=== PATIENT | male | born 1980 | race Caucasian/White ===

== ENCOUNTER 2023-12-23 23:54 | Inpatient (IN) | payer OTHER ==
[~2023-12-23] VITALS: Ht 167.6 cm; Wt 68.2 kg
[2023-12-24 00:35] LABS: BASOPHILS % (AUTO) 0.3 % (0.0-2.0); EOSINOPHILS % (AUTO) 1.6 % (1.0-6.0); HEMATOCRIT 42.1 % (41-53); HEMOGLOBIN 13.6 g/dL (13.5-17.5); LYMPHOCYTES # (AUTO) 3.4 K/uL (1.0-4.8); LYMPHOCYTES % (AUTO) 38.4 % (22.0-44.0); MEAN CORPUSCULAR HEMOGLOBIN 31.1 pg (26.0-34.0); MEAN CORPUSCULAR HGB CONC 32.3 G/dL (31.0-37.0); MEAN CORPUSCULAR VOLUME 96 fL (80-100); MONOCYTES # (AUTO) 0.7 K/uL (0.1-1.0); NEUTROPHILS # (AUTO) 4.6 K/uL (1.8-7.7); NEUTROPHILS % (AUTO) 51.7 % (40.0-70.0); PLATELET COUNT (AUTO) 285 K/uL (150-450); RED BLOOD CELL COUNT(AUTO) 4.37 MIL/uL (4.50-5.90); WHITE BLOOD COUNT (AUTO) 8.8 K/uL (4.5-11.0)
[2023-12-24 00:48] LABS: ANION GAP 6 mmol/L (8-16); CALCIUM, TOTAL 9.1 mg/dL (8.8-10.5); CARBON DIOXIDE 32 mmol/L (22-29); CHLORIDE 104 mmol/L (98-107); CREATININE 0.92 mg/dL (0.60-1.30); GLOMERULAR FILTR. RATE CALC > 60 mL/min (>60); GLUCOSE,RANDOM 120 mg/dL (70-110); POTASSIUM 4.2 mmol/L (3.5-5.1); SODIUM SERUM 142 mmol/L (136-145); UREA NITROGEN, BLOOD 16 mg/dL (7-18)
[2023-12-24 00:52] LABS: B-TYPE NATRIURETIC PEPTIDE 10 pg/mL (0-100)
[2023-12-24 00:56] LABS: ALANINE AMINOTRANSFERASE 19 U/L (12-78); ALBUMIN 3.9 g/dL (3.4-5.0); ALKALINE PHOSPHATASE 88 U/L (46-116); ASPARTATE AMINOTRANSFERASE 12 U/L (15-37); BILIRUBIN,TOTAL 0.2 mg/dL (0.1-1.0); LIPASE 19 U/L (16-77)
[2023-12-24 00:57] LABS: TROPONIN I-HIGH SENSITIVITY Less Than 4 ng/L (<76)
[2023-12-24] MEDS ORDERED: IOHEXOL 350 MG/ML 100 ML VIAL ONE (00:57)
[2023-12-24] MEDS ORDERED: SODIUM CHLORIDE 0.9% 100 ML ONE (00:57)
[2023-12-24 01:53] LABS: COVID AG,FIA SOURCE NASAL SWAB
[2023-12-24] MEDS: ONDANSETRON HCL 4 MG/2 ML VIAL IVP ONE (01:54)
[2023-12-24] MEDS: FAMOTIDINE 20 MG/2 ML VIAL IVP ONE (01:54)
[2023-12-24] MEDS ORDERED: ONDANSETRON HCL 4 MG/2 ML VIAL IVP PRN (02:00)
[2023-12-24 02:24] LABS: APPEARANCE,URINE CLEAR (CLEAR); BILIRUBIN,URINE NEGATIVE (NEGATIVE); COLOR,URINE YELLOW (YELLOW); GLUCOSE, URINE (UA) NEGATIVE (NEGATIVE); KETONES,URINE TRACE mg/dL (NEGATIVE); LEUKOCYTE ESTERASE ,URINE NEGATIVE (NEGATIVE); NITRATE,URINE NEGATIVE (NEGATIVE); OCCULT BLOOD,URINE NEGATIVE (NEGATIVE); PROTEIN,URINE 30-70 mg/dL (NEGATIVE)
[2023-12-24 02:26] LABS: SARS-COV2 (COVID) ANTIGEN,FIA Negative (Negative)
[2023-12-24 02:29] LABS: INFLUENZA TYPE A NEGATIVE FOR TYPE A (NEGATIVE); INFLUENZA TYPE B NEGATIVE FOR TYPE B (NEGATIVE)
[2023-12-24] MEDS: RINGERS SOLUTION,LACTATED 1,000 ML IV SCH (02:58)
[2023-12-24] MEDS: KETOROLAC TROMETHAMINE 30 MG/ML VIAL IVP ONE (04:39)
[2023-12-24 05:34] VITALS: BP 126/63; PULSE 69; RESP 19; TEMP 98.1; O2SAT 99
[2023-12-24 07:35] VITALS: BP 123/70; PULSE 65; RESP 18; TEMP 97.7; O2SAT 97
[2023-12-24] MEDS: HEPARIN SODIUM,PORCINE 5,000 UNITS/ML VIAL SQ SCH (09:25)
[2023-12-24 20:00] VITALS: BP 125/79; PULSE 70; RESP 18; TEMP 98.5; O2SAT 100
[2023-12-24] MEDS: ACETAMINOPHEN 325 MG TABLET PO PRN (21:07)
[2023-12-25] MEDS ORDERED: OXCA300T70 PO (00:17)
[2023-12-25] MEDS ORDERED: LEVA15HF3 PUFF (00:19)
[2023-12-25] MEDS ORDERED: LEVO88TA4 PO (00:20)
[2023-12-25] MEDS ORDERED: SENN-376 PO (00:22)
[2023-12-25] MEDS ORDERED: OMEP20 PO (00:23)
[2023-12-25] MEDS ORDERED: ONDA-104 PO (00:24)
[2023-12-25] MEDS ORDERED: LINA290C PO (00:27)
[2023-12-25] MEDS ORDERED: MAGN-169 PO (00:27)
[2023-12-25] MEDS ORDERED: NALO4SPR NASAL (00:27)
[2023-12-25] MEDS ORDERED: VENL-68 PO (00:27)
[2023-12-25] MEDS ORDERED: DOCU-385 PO (00:29)
[2023-12-25] MEDS ORDERED: AMOX-457 PO (00:29)
[2023-12-25] MEDS ORDERED: ARIP2TAB27 PO (00:29)
[2023-12-25] MEDS ORDERED: CLOZ25TA52 PO (00:29)
[2023-12-25] MEDS ORDERED: LIDO1ADH83 TP (00:33)
[2023-12-25] MEDS ORDERED: SUCR1TAB2 PO (00:33)
[2023-12-25] MEDS ORDERED: BUPR1FIL7 SL (00:33)
[2023-12-25] MEDS ORDERED: BUPR1FIL5 SL (00:33)
[2023-12-25] MEDS ORDERED: HYDR30CR39 TP (00:42)
[2023-12-25] MEDS ORDERED: DORZ1DRO7 OU (00:42)
[2023-12-25] MEDS ORDERED: LATA2.5D14 OU (00:42)
[2023-12-25] MEDS ORDERED: BRIM5DRO9 OU (00:42)
[2023-12-25 04:00] VITALS: BP 110/62; PULSE 62; RESP 20; TEMP 97.7; O2SAT 98
[2023-12-25 08:00] VITALS: BP 130/77; PULSE 71; RESP 18; TEMP 98.5; O2SAT 100
[2023-12-25 11:34] LABS: BASOPHILS % (AUTO) 0.2 % (0.0-2.0); EOSINOPHILS % (AUTO) 2.1 % (1.0-6.0); HEMATOCRIT 37.5 % (41-53); HEMOGLOBIN 12.4 g/dL (13.5-17.5); LYMPHOCYTES # (AUTO) 1.3 K/uL (1.0-4.8); LYMPHOCYTES % (AUTO) 14.7 % (22.0-44.0); MEAN CORPUSCULAR HEMOGLOBIN 31.6 pg (26.0-34.0); MEAN CORPUSCULAR VOLUME 96 fL (80-100); MONOCYTES % (AUTO) 10.9 % (2.0-9.0); NEUTROPHILS # (AUTO) 6.3 K/uL (1.8-7.7); NEUTROPHILS % (AUTO) 72.1 % (40.0-70.0); PLATELET COUNT (AUTO) 257 K/uL (150-450); RED BLOOD CELL COUNT(AUTO) 3.92 MIL/uL (4.50-5.90); RED CELL DISTRIBUTION WIDTH 12.7 % (11.5-14.5); WHITE BLOOD COUNT (AUTO) 8.7 K/uL (4.5-11.0)
[2023-12-25 11:49] LABS: ANION GAP 8 mmol/L (8-16); CALCIUM, TOTAL 8.5 mg/dL (8.8-10.5); CARBON DIOXIDE 31 mmol/L (22-29); CHLORIDE 106 mmol/L (98-107); CREATININE 0.69 mg/dL (0.60-1.30); GLOMERULAR FILTR. RATE CALC > 60 mL/min (>60); GLUCOSE,RANDOM 95 mg/dL (70-110); POTASSIUM 3.9 mmol/L (3.5-5.1); SODIUM SERUM 144 mmol/L (136-145); UREA NITROGEN, BLOOD 5 mg/dL (7-18)
[2023-12-25] MEDS ORDERED: LORazepam 2 MG/ML VIAL ONE (11:49)
[2023-12-25 11:53] LABS: ALANINE AMINOTRANSFERASE 22 U/L (12-78); ALBUMIN 3.3 g/dL (3.4-5.0); ALKALINE PHOSPHATASE 79 U/L (46-116); ASPARTATE AMINOTRANSFERASE 12 U/L (15-37); BILIRUBIN,TOTAL 0.4 mg/dL (0.1-1.0); TOTAL PROTEIN, SERUM 6.1 g/dL (6.4-8.2)
[2023-12-25] MEDS ORDERED: LEVALBUTEROL TARTRATE HFA 45 MCG/PUFF 15 GM INHALER IH PRN (13:15)
[2023-12-25] MEDS: HYDROCORTISONE 1% 30 GM CREAM TP SCH (13:15)
[2023-12-25] MEDS ORDERED: MISC MED-CONVERTED FROM AMBULATORY (Lidocaine 1 PATCH) TP PRN (13:15)
[2023-12-25] MEDS ORDERED: MISC MED-CONVERTED FROM AMBULATORY (Naloxone HCl (Narcan) 1 SPRAY) NASAL PRN (13:15)
[2023-12-25] MEDS: DORZOLAMIDE/TIMOLOL 2-0.5% [22.3-6.8MG/ML] 10 ML OPHTHALMIC SOLUTION OU SCH (14:39)
[2023-12-25] MEDS: SUCRALFATE 1 GM TABLET PO SCH (14:39)
[2023-12-25] MEDS: VENLAFAXINE HCL 150 MG ER CAPSULE PO SCH (14:39)
[2023-12-25] MEDS: OMEPRAZOLE 20 MG CAPSULE PO SCH (14:39)
[2023-12-25] MEDS: OXcarbazepine 300 MG TABLET PO SCH (14:40)
[2023-12-25] MEDS: BUPRENORPHINE HCL/NALOXONE HCL 2-0.5 MG SUBLINGUAL TABLET SL SCH (14:40)
[2023-12-25] MEDS: BRIMONIDINE TARTRATE 0.2% 5 ML OPHTHALMIC SOLUTION OU SCH (15:56)
[2023-12-25 19:58] VITALS: BP 117/74; PULSE 60; RESP 18; TEMP 98.3; O2SAT 96
[2023-12-25] MEDS: CloZAPine 25 MG TABLET PO SCH (21:00)
[2023-12-25] MEDS: LATANOPROST 0.005% 2.5 ML OPHTHALMIC SOLUTION OU SCH (21:09)
[2023-12-25] MEDS: BUPRENORPHINE HCL/NALOXONE HCL 8-2 MG SUBLINGUAL TABLET SL SCH (21:33)
[2023-12-26 04:33] VITALS: BP 130/72; PULSE 65; RESP 18; TEMP 97.9; O2SAT 96
[2023-12-26] MEDS: LEVOTHYROXINE SODIUM 88 MCG TABLET PO SCH (06:07)
[2023-12-26 08:00] VITALS: BP 134/74; PULSE 80; RESP 18; TEMP 98.1; O2SAT 99
[2023-12-26] MEDS: LINACLOTIDE 145 MCG CAPSULE PO SCH (08:32)
[2023-12-26] MEDS: ARIPiprazole 2 MG TABLET PO SCH (08:36)
[2023-12-26 20:08] VITALS: BP 124/77; PULSE 77; RESP 18; TEMP 98.2; O2SAT 99
[2023-12-27 04:34] VITALS: BP 114/65; PULSE 72; RESP 18; TEMP 98.3; O2SAT 97
[2023-12-27 09:30] VITALS: BP 118/62; PULSE 64; RESP 18; TEMP 98; O2SAT 98
[2023-12-27] MEDS: DOCUSATE SODIUM 100 MG CAPSULE PO PRN (09:45)
[2023-12-27] MEDS: SENNOSIDES 8.6 MG TABLET PO PRN (13:05)
[2023-12-27] MEDS: SODIUM PHOSPHATE,MONO-DIBASIC 133 ML ENEMA PR ONE (13:06)
[2023-12-27] MEDS: MAGNESIUM CITRATE [LEMON] 300 ML ORAL SOLUTION PO ONE (14:34)
[2023-12-28 05:33] VITALS: BP 116/61; PULSE 65; RESP 18; TEMP 97.8; O2SAT 99
[2023-12-28 08:00] VITALS: BP 115/60; PULSE 68; RESP 18; TEMP 97.9; O2SAT 96
[2023-12-28] MEDS: MAGNESIUM HYDROXIDE SUSPENSION 30 ML UDCUP PO PRN (09:30)
[2023-12-28] MEDS: LACTULOSE 20 GM/30 ML SOLUTION UDCUP PO ONE (10:40)
[2023-12-28] MEDS ORDERED: MINERAL OIL 133 ML ENEMA PR ONE (15:15)
[2023-12-28 16:34] VITALS: BP 111/54; PULSE 71; RESP 18; TEMP 98.6; O2SAT 98
[2023-12-28] MEDS: MINERAL OIL 133 ML ENEMA PR ONE (16:45)
[2023-12-28] MEDS: SENNOSIDES/DOCUSATE SODIUM 8.6-50 MG TABLET PO SCH (20:23)
[2023-12-28 20:40] VITALS: BP 114/68; PULSE 88; RESP 18; TEMP 98.7; O2SAT 98
[2023-12-29] MEDS: ONDANSETRON 4 MG TABLET PO PRN (00:41)
[2023-12-29 04:23] VITALS: BP 113/63; PULSE 75; RESP 18; TEMP 98.7; O2SAT 96
[2023-12-29 08:19] VITALS: BP 117/68; PULSE 75; RESP 20; TEMP 98.6; O2SAT 96
[2023-12-29] MEDS: PEG 3350/NA SULF,BICARB,CL/KCL 4000 ML SOLUTION PO ONE (11:29)
[2023-12-29 18:12] VITALS: BP 124/70; PULSE 80; RESP 20; TEMP 98.1; O2SAT 99
[2023-12-29 19:24] VITALS: BP 112/57; PULSE 67; RESP 18; TEMP 98.3; O2SAT 98
[2023-12-30 04:07] VITALS: BP 117/69; PULSE 63; RESP 18; TEMP 98.2; O2SAT 96
[2023-12-30 08:20] VITALS: BP 127/74; PULSE 72; RESP 18; TEMP 98.7; O2SAT 99
[2023-12-30 16:30] VITALS: BP 124/49; PULSE 70; RESP 17; TEMP 98.4; O2SAT 98
[2023-12-30 19:39] VITALS: BP 125/72; PULSE 69; RESP 18; TEMP 98.3; O2SAT 99
[2023-12-31 03:20] VITALS: BP 120/70; PULSE 66; RESP 18; TEMP 97.6; O2SAT 99
[2023-12-31 07:32] VITALS: BP 111/69; PULSE 68; RESP 18; TEMP 98; O2SAT 96
[2023-12-31 19:30] VITALS: BP 115/59; PULSE 80; RESP 18; TEMP 98.4; O2SAT 97
== END 2023-12-31 20:22 | DRG 641 ==
LOC: EMS 23:56 → EDH 12-24 02:59 → 5S 12-24 05:20 → 6N 12-24 10:40
PROVIDERS: ADMIT Internal Medicine; ATTEND Internal Medicine
PROC: 0D9670Z Drainage of Stomach with Drainage Device, Via Natural or Artificial Opening (ICD-10-PCS; principal; 2023-12-25)
DX: E86.0 Dehydration (principal); K56.600 Partial intestinal obstruction, unspecified as to cause; E44.0 Moderate protein-calorie malnutrition; K52.9 Noninfective gastroenteritis and colitis, unspecified; Z20.822 Contact with and (suspected) exposure to COVID-19; E03.9 Hypothyroidism, unspecified; R80.9 Proteinuria, unspecified; K31.89 Other diseases of stomach and duodenum; G89.29 Other chronic pain; K59.09 Other constipation; F41.9 Anxiety disorder, unspecified; F31.9 Bipolar disorder, unspecified; Z88.8 Allergy status to other drugs, medicaments and biological substances; Z91.013 Allergy to seafood; Z68.24 Body mass index [BMI] 24.0-24.9, adult
CPT/HCPCS: 71045; 71260; 72193; 74019; 74160; 80048; 80053; 80076; 81003; 83690; 83880; 84484; 85025; 87804; 93005; 97110; 97116; 97162; 97167; 97530; 97535; 99285; J1644; J1885; J2060; J2405; J3490; J7050; J7120; Q0162; 36415-L1; 36415-TC